=== PATIENT | male | born 1960 | race Caucasian/White ===

== ENCOUNTER 2024-09-24 20:27 | Observation (INO) ==
[2024-09-24] MEDS: LORazepam 1 MG TAB SL STA (20:49)
[2024-09-24] MEDS: dilTIAZem HCl 5 MG/ML 5 ML VIAL IV STA (20:49)
[2024-09-24] MEDS: SODIUM CHLORIDE 0.9% 1,000 ML IV SCH (20:50)
[2024-09-24] MEDS: LORazepam 0.5 MG TAB ONE (20:50)
[2024-09-24] MEDS: ASPIRIN 81 MG CHEW PO STA (20:50)
[2024-09-24] MEDS: ASPIRIN CHEW 324 MG ONE (20:50)
[2024-09-24 21:13] LABS: Basophils # (auto) 0.07 K/uL (0.00-0.20); Basophils % (auto) 1.1 %; Eosinophils # (auto) 0.21 K/uL (0.00-0.50); Eosinophils % (auto) 3.2 %; Hematocrit (blood only) 48.3 % (42.0-52.0); Hemoglobin 16.7 g/dl (14.0-18.0); Immature Granulocytes # (auto) 0.08 K/uL (0.01-0.20); Immature Granulocytes % (auto) 1.2 %; Lymphocytes # (auto) 2.85 K/uL (1.20-3.40); Lymphocytes % (auto) 42.9 %; Mean Corpuscular Hemoglobin 31.8 pg (25.0-34.0); Mean Corpuscular Hgb Conc 34.6 g/dL (32.0-36.0); Mean Platelet Volume 9.4 fL (9.4-12.4); Monocytes # (auto) 0.58 K/uL (0.11-0.59); Monocytes % (auto) 8.7 %; Neutrophils # (auto) 2.86 K/uL (1.40-6.50); Neutrophils % (auto) 42.9 %; Platelet Count 260 K/uL (130-400); RDW Coefficient of Variation 12.9 % (11.5-14.5); RDW Standard Deviation 43.8 fL (36.4-46.3); Red Blood Count 5.25 M/uL (4.70-6.10); White Blood Count 6.65 K/ul (4.8-10.8)
[2024-09-24 21:19] LABS: BUN Creatinine Ratio 18.8 (10-20); Calcium 9.4 mg/dl (8.6-10.3); Creatinine Clr Calc Pharmacy 76.6 ml/min; Magnesium 1.7 mg/dl (1.7-2.4); Potassium 4.1 mmol/L (3.5-5.1)
[2024-09-24] MEDS: OPTIRAY 320 125ml IV ONE (21:25)
[2024-09-24 21:26] LABS: Troponin I High Sensitivity 2.4 pg/ml (0-20)
[2024-09-24 21:31] LABS: Partial Thromboplastin Time 28 Seconds (21-31)
[2024-09-24] MEDS: POTASSIUM CHLORIDE CRTAB 20 MEQ TABCR PO STA (21:49)
[2024-09-24] MEDS: MAGNESIUM SULFATE / D5W 1 GM/100 ML BAG IV SCH (21:51)
[2024-09-24] MEDS: METOPROLOL TARTRATE 25 MG TAB PO STA ×2 (21:58→23:04)
--- NOTE | 2024-09-24 22:01 | CT Scan Report ---
Exam(s): CTA CHEST IV Amt: 119 ml optiray 320 EXAM: CT Angiography Chest With Intravenous Contrast CLINICAL HISTORY: Reason for exam: Chest Pain, eval for PE. TECHNIQUE: Axial computed tomographic angiography images of the chest with intravenous contrast. CTDI is 40 mGy and DLP is 1103.44 mGy-cm. Automated exposure control was utilized for the study. A dose lowering technique was utilized adhering to the principles of ALARA. MIP reconstructed images were created and reviewed. COMPARISON: X-ray chest: 07/21/2022 FINDINGS: Exam limited by motion and suboptimal IV contrast bolus/timing. Pulmonary arteries: Unremarkable. No pulmonary embolism. Aorta: No acute findings. No thoracic aortic aneurysm. Calcified atherosclerotic plaque of the aortic arch. Lungs: Central airways are patent. No mass. No consolidation. Pleural space: Unremarkable. No significant effusion. No pneumothorax. An elevated right hemidiaphragm. Heart: Unremarkable. No cardiomegaly. No significant pericardial effusion. No evidence of RV dysfunction. Bones/joints: No acute fracture. No dislocation. Mid/lower thoracic degenerative spondylosis. Soft tissues: Unremarkable. Lymph nodes: No significantly enlarged lymph nodes. Other findings: A small hiatal hernia. Diffuse hepatic steatosis. . IMPRESSION: No evidence of pulmonary embolism, aortic aneurysm or dissection. . Electronically signed by: Feliberto Albert MD, WANGR 09/24/24 22:00 PM
[2024-09-24 22:06] LABS: Appearance Urine Clear (Clear); Bilirubin Urine Negative (Negative); Blood Urine Negative (Negative); Color Urine Yellow; Glucose Urine UA Negative (Negative); Ketones Urine Negative (Negative); Leukocyte Esterase Urine Negative (Negative); Nitrite Urine Negative (Negative); Protein Urine Negative (Negative); Specific Gravity Urine 1.021 (1.000-1.030); Urobilinogen Urine Negative (Negative)
[2024-09-24 22:37] LABS: Amphetamines+Metham, Urine Neg (Neg); Barbiturates, Urine Neg (Neg); Benzodiazepine, Urine Neg (Neg); Cocaine, Urine Neg (Neg); Fentanyl, Urine Neg (Neg); MDMA (Ecstacy), Urine Neg (Neg); Marijuana, Urine Neg (Neg); Methadone, Urine Neg (Neg); Opiate, Urine Neg (Neg); Phencyclidine, Urine Neg (Neg)
--- NOTE | 2024-09-24 22:37 | Emergency Department Note ---
History of Present Illness General Chief Complaint: Cardiac Assessment Stated Complaint: LIGHTED , SOB, DIZZY, CHEST HEAVYNESS, AFIB Time Seen by Provider: 09/24/24 20:37 History of Present Illness Provider Complaint: + rapid heart beat and + palpitations Onset (ago): 2 day(s) Duration: + Worsening Maximum Pain Intensity: 8 Context: + occurred during rest Arrhythmia history: no atrial fibrillation or no on anti-coagulants Associated symptoms: + chest pain, + shortness of breath and + near-syncope; no syncope, no nausea, no vomiting or no cough HPI narrative: Patient reports his Apple Watch told him he was in A-fib so he presented to the emergency department. Patient reports he drinks 6-7 beers a day but did not drink any the last 2 days. Home Medications Medication Instructions Recorded Confirmed Type lisinopril 40 mg tablet 40 mg PO QAM 08/13/21 09/24/24 History simvastatin 40 mg tablet 40 mg PO HS 08/13/21 09/24/24 History pantoprazole 40 mg tablet,delayed 40 mg PO QAM 10/31/23 09/24/24 History release amoxicillin 500 mg tablet 2,000 mg (4 x 500 mg) PO ONCE #4 11/03/23 09/24/24 Rx tabs tadalafil 5 mg tablet 5 mg PO DAILY PRN Erectile 05/16/24 09/24/24 Rx Dysfunction 30 days #30 tabs trazodone 50 mg tablet 50 mg PO HS 90 days #90 tabs 07/01/24 09/24/24 Rx Allergies Allergy/AdvReac Type Severity Reaction Status Date / Time No Known Allergies Allergy Verified 05/07/24 13:34 Past Med/Surg History Problem List Atrial fibrillation with RVR (Acute) Colon cancer screening Encounter for pre-operative examination Obesity (BMI 30.0-34.9) Status post total knee replacement GERD (gastroesophageal reflux disease) Hyperlipidemia Hypertension Status post right knee replacement Right TKA (11/11/21): SAB at L3 (x1 attempt) + PNB at [facility]. No issues noted per post-op anesthesia progress note. Surgical History History of total knee replacement left/right History of colonoscopy Hx of hernia repair As child History of tonsillectomy Family History Father Diabetes Hypertension Other No family history of adverse response to anesthesia Denies family history of Ovarian cancer Prostate cancer Heart disease Myocardial infarction Breast cancer Colorectal cancer Social History Smoking Status: Former smoker Age Started Using Tobacco: 20; Age Quit Using Tobacco: 38; Second Hand Exposure: Yes (as a child); Do You Dip or Chew Tobacco: No; Hx Alcohol Use: Yes Alcohol type: beer Alcohol Intake Frequency: 4 or More x per/Week Preferred Language: Cymro Communication Ability: Effective Corporate Financial Analyst Required: No Beliefs That Will Affect Care: None marital status: Current Living Situation: Spouse current occupational status: retired Feels Safe at Home: Yes Childhood Exposure to Second-Hand Smoke: Yes (father smoked a pipe) Diet: regular Dental Care, Regularly: No Physical Activity Frequency: 3-4 Times per Week Physical Activity Frequency Comment: [employer] Seatbelt Use: always Sunscreen Use: Yes Assistive Devices: Glasses Physical Exam 2 Vital Signs: Vital Signs - 24 hr 09/24/24 20:29 09/24/24 20:38 09/24/24 20:38 Temperature 36 C L Temperature Source Temporal Artery Sc an Pulse Rate 120 H 135 H Pulse Rate [Apical ] Pulse Rhythm Irregular Respiratory Rate 20 22 Respiratory Effort / Characteristics Respiratory Depth Respiratory Patter n Blood Pressure 141/94 H Blood Pressure [Ri ght Arm] Blood Pressure Mary n 109 Blood Pressure Mary n [Right Arm] Pulse Oximetry 95 95 Oxygen Delivery Me thod Room Air Room Air Sepsis Recent Feve r Within 48 Hours No Sepsis New/Unexpla ined Change in Men jose Status No Sepsis Action Take n by Nursing No Action Required 09/24/24 20:52 09/24/24 21:58 Temperature Temperature Source Pulse Rate Pulse Rate [Apical ] 96 H Pulse Rhythm Respiratory Rate 20 Respiratory Effort / Characteristics Non-Labored Sponta neous Respiratory Depth Normal Respiratory Patter n Regular Blood Pressure Blood Pressure [Ri ght Arm] 148/128 H Blood Pressure Mary n Blood Pressure Mary n [Right Arm] 134 Pulse Oximetry 95 95 Oxygen Delivery Me thod Room Air Room Air Sepsis Recent Feve r Within 48 Hours Sepsis New/Unexpla ined Change in Men jose Status Sepsis Action Take n by Nursing Physical Exam: Physical Exam GENERAL: oriented to person, place, and time. appears well-developed and well- nourished. HENT: Exam performed. - Head: Normocephalic and atraumatic. EYES: Conjunctivae and EOM are normal. Right eye exhibits no discharge. Left eye exhibits no discharge. No scleral icterus. NECK: Normal range of motion. Neck supple. No JVD present. CV: Tachycardic rate, irregular rhythm, normal heart sounds and intact distal pulses. There is no peripheral edema. Palpable radial pulses bue. PULM/CHEST: Effort normal and breath sounds normal. No respiratory distress. No stridor. no wheezes. no rales. ABD: The abdomen is soft. There is no tenderness. NEURO: Motor and sensation grossly intact. SKIN: Skin is warm and dry. He is not diaphoretic. PSYCH: normal mood and affect. Behavior is normal. Judgment and thought content normal. Course Course 2036: The patient was evaluated in room A11A. A complete history and physical exam was performed Cardiac monitoring: An order was placed for continuous cardiac monitoring. The monitor shows a rate of 140-160 with atrial fibrilation rhythm interpreted by me Patient found to be in A-fib RVR. Large-bore IV access was obtained. Cardizem 20 mg IV push was given to the patient which improved his ventricular rate. 2214: Vital signs stable status post Cardizem bolus. Labs and imaging are unremarkable. Patient will be admitted to the [facility]. Administered Medications Sodium Chloride (Nss) 1,000 mls @ 125 mls/hr IV .Q8H [facility] Stop: 09/25/24 20:44 Last Admin: 09/24/24 20:50 Dose: 125 mls/hr Documented By: [facility] Magnesium Sulfate/Dextrose (Magnesium Sulfate / D5w) 1 gm in 100 mls @ 50 mls/hr IV Q2H [facility] Stop: 09/25/24 01:29 Last Admin: 09/24/24 21:51 Dose: 50 mls/hr Documented By: [facility] Discontinued Medications Aspirin (Aspirin 81 Mg Chew) 324 mg PO NOW [facility] Stop: 09/24/24 20:43 Last Admin: 09/24/24 20:50 Dose: Not Given Documented By: [facility] Aspirin (Aspirin Chew 324 Mg) Confirm Administered Dose 324 mg .ROUTE .STK-MED ONE Stop: 12/10/24 20:45 Last Admin: 09/24/24 20:50 Dose: 324 mg Documented By: ANDREY Diltiazem HCl (Diltiazem Hcl 5 Mg/Ml 5 Ml Vial) 20 mg IV NOW STA Stop: 09/24/24 20:42 Last Admin: 09/24/24 20:49 Dose: 20 mg Documented By: ANDREY Co-signed By: ALEN Ioversol (Optiray 320 125ml) 119 ml IV ONCE ONE Stop: 09/24/24 21:25 Last Admin: 09/24/24 21:25 Dose: 119 ml Documented By: SHANNAN Lorazepam (Lorazepam 1 Mg Tab) 1 mg SL NOW STA Stop: 09/24/24 20:43 Last Admin: 09/24/24 20:49 Dose: 1 mg Documented By: ANDREY Lorazepam (Lorazepam 0.5 Mg Tab) Confirm Administered Dose 0.5 mg .ROUTE .STK- MED ONE Stop: 09/24/24 20:46 Last Admin: 09/24/24 20:50 Dose: Not Given Documented By: ANDREY Metoprolol Tartrate (Metoprolol Tartrate 25 Mg Tab) 25 mg PO NOW STA Stop: 09/24/24 21:53 Last Admin: 09/24/24 21:58 Dose: 25 mg Documented By: ALEN Potassium Chloride (Potassium Chloride Crtab 20 Meq Tabcr) 20 meq PO NOW STA Stop: 09/24/24 21:28 Last Admin: 09/24/24 21:49 Dose: 20 meq Documented By: ALEN Medical Decision Making Laboratory Data Attestation: I reviewed the patient's lab results. 09/24/24 20:41 09/24/24 20:41 Lab Results 09/24/24 09/24/24 Range/Units 20:41 21:45 WBC 6.65 (4.8-10.8) K/ul RBC 5.25 (4.70-6.10) M/uL Hgb 16.7 (14.0-18.0) g/dl Hct 48.3 (42.0-52.0) % MCV 92.0 (80.0-100.0) fL MCH 31.8 (25.0-34.0) pg MCHC 34.6 (32.0-36.0) g/dL RDW Std Deviation 43.8 (36.4-46.3) fL RDW Coeff of [place] 12.9 (11.5-14.5) % Plt Count 260 (130-400) K/uL MPV 9.4 (9.4-12.4) fL Immature Gran % (Auto) 1.2 % Neut % (Auto) 42.9 % Lymph % (Auto) 42.9 % [place] % (Auto) 8.7 % Eos % (Auto) 3.2 % Baso % (Auto) 1.1 % Neut # (Auto) 2.86 (1.40-6.50) K/uL Lymph # (Auto) 2.85 (1.20-3.40) K/uL [place] # (Auto) 0.58 (0.11-0.59) K/uL Eos # (Auto) 0.21 (0.00-0.50) K/uL Baso # (Auto) 0.07 (0.00-0.20) K/uL Immature Gran # (Auto) 0.08 (0.01-0.20) K/uL PT 11.0 (9.0-12.0) Seconds INR 1.0 (0.9-1.1) APTT 28 (21-31) Seconds PTT Ratio 1.0 Sodium 136 (136-145) mmol/L Potassium 4.1 (3.5-5.1) mmol/L Chloride 104 (98-107) mmol/L Carbon Dioxide 24 (21-32) mmol/L Anion Gap 8 (3-11) BUN 24 H (6-23) mg/dl Creatinine 1.28 (0.6-1.4) mg/dl Est Cr Clr Drug Dosing 76.6 ml/min eGFR 61.73 BUN/Creatinine Ratio 18.8 (10-20) Glucose 123 H (70-99(Fasting)) mg/dl Calcium 9.4 (8.6-10.3) mg/dl Magnesium 1.7 (1.7-2.4) mg/dl Troponin I High Sens 2.4 (0-20) pg/ml Lipase 29 (11-82) U/L Urine Color Yellow Urine Appearance Clear (Clear) Urine pH 6.0 (4.5-7.5) Ur Specific [place] 1.021 (1.000-1.030) Urine Protein Negative (Negative) Urine Glucose (UA) Negative (Negative) Urine Ketones Negative (Negative) Urine Blood Negative (Negative) Urine Nitrite Negative (Negative) Urine Bilirubin Negative (Negative) Urine Urobilinogen Negative (Negative) Ur Leukocyte Esterase Negative (Negative) Imaging Data Attestation: I personally reviewed and interpreted this imaging study as follows: My Impression: Chest x-ray negative. Airway clear. No pneumothorax. No consolidation. No cardiomegaly or cephalization.. No free air under the diaphragm. No fractures of the skeletal structures. Radiologist's Impression: Chest CTA 09/24/24 20:38 Exam(s): CTA CHEST IV Amt: 119 ml optiray 320 EXAM: CT Angiography Chest With Intravenous Contrast CLINICAL HISTORY: Reason for exam: Chest Pain, eval for PE. TECHNIQUE: Axial computed tomographic angiography images of the chest with intravenous contrast. CTDI is 40 mGy and DLP is 1103.44 mGy-cm. Automated exposure control was utilized for the study. A dose lowering technique was utilized adhering to the principles of ALARA. MIP reconstructed images were created and reviewed. COMPARISON: X-ray chest: 07/21/2022 FINDINGS: Exam limited by motion and suboptimal IV contrast bolus/timing. Pulmonary arteries: Unremarkable. No pulmonary embolism. Aorta: No acute findings. No thoracic aortic aneurysm. Calcified atherosclerotic plaque of the aortic arch. Lungs: Central airways are patent. No mass. No consolidation. Pleural space: Unremarkable. No significant effusion. No pneumothorax. An elevated right hemidiaphragm. Heart: Unremarkable. No cardiomegaly. No significant pericardial effusion. No evidence of RV dysfunction. Bones/joints: No acute fracture. No dislocation. Mid/lower thoracic degenerative spondylosis. Soft tissues: Unremarkable. Lymph nodes: No significantly enlarged lymph nodes. Other findings: A small hiatal hernia. Diffuse hepatic steatosis. . IMPRESSION: No evidence of pulmonary embolism, aortic aneurysm or dissection. . Electronically signed by: Feliberto Albert MD, DABR 09/24/24 22:00 PM ECG Data Attestation: I personally reviewed and interpreted this ECG as follows: Additional Comments: EKG #1 at 2034: Atrial fibrillation with a rate of 139. QRS and QTc intervals within normal limits. No ST elevation or ST depression EKG #2 at 2045 status post Cardizem 20 mg IV bolus: Atrial fibrillation with a rate of 103. QRS and QTc intervals are within normal limits. No ST elevation or ST depression. [facility] Narrative 2036: The patient was evaluated in room A11A. A complete history and physical exam was performed Cardiac monitoring: An order was placed for continuous cardiac monitoring. The monitor shows a rate of 140-160 with atrial fibrilation rhythm interpreted by me Patient found to be in A-fib RVR. Large-bore IV access was obtained. Cardizem 20 mg IV push was given to the patient which improved his ventricular rate. 2215: Vital signs stable status post Cardizem bolus. Labs and imaging are unremarkable. Patient will be admitted to the [facility]. Impression & Plan Atrial fibrillation with RVR Critical Care Time Critical Care Time: Yes Total Critical Care Time: 40 I have personally spent greater than 40 minutes of critical care time in the direct management of this patient. This includes bedside care, interpretation of diagnostic studies, and testing, discussion with consultants, patient, and family members, and other required patient management activities. This 40 minutes is in excess of all separately billable procedures. Discharge Plan Visit Data Chief Complaint: Cardiac Assessment Stated Complaint: LIGHTED , SOB, DIZZY, CHEST HEAVYNESS, AFIB ED Provider: Marshall Mittal Discharge Problem: Atrial fibrillation with RVR Patient Disposition: Admitted As Inpatient Forms Stand Alone Forms: My [facility] Prescriptions Prescriptions: No Action amoxicillin 500 mg tablet 2,000 mg PO ONCE Qty: 4 3RF Rx Instructions: 4 tabs 1 hour prior to procedure tadalafil 5 mg tablet 5 mg PO DAILY PRN (Reason: Erectile Dysfunction) 30 Days Qty: 30 5RF trazodone 50 mg tablet 50 mg PO HS 90 Days Qty: 90 0RF pantoprazole 40 mg tablet,delayed release (DR/EC) 40 mg PO QAM simvastatin 40 mg Tablet 40 mg PO HS lisinopril 40 mg Tablet 40 mg PO QAM Referrals Referrals: Caroline Thakkar MD [Primary Care Provider] -
[2024-09-24] MEDS ORDERED: Heparin IV Adult Wt-Based Standard *NO* INITIAL Bolus Protocol IV STA (23:26)
--- NOTE | 2024-09-24 23:31 | History & Physical Report ---
Date of Service September 24, 2024 Assessment & Plan (1) Atrial fibrillation with RVR: (2) Hypertension: (3) Hypomagnesemia: (4) Dehydration: (5) Alcohol dependence, daily use: Admission and Anticipated Discharge Date Admission Date: New onset atrial fibrillation with RVR/hypertension- The patient will be admitted to telemetry for serial cardiac enzymes, serial EKG's, cardiac rhythm monitoring and a 2-D echocardiogram with Dopplers. Multiple contributing factors including not limited to: Dehydration, hypomagnesemia, alcohol dependence with last use 2 days ago, Status post Cardizem 20 mg IV from the ED, with improvement in heart rate from 150s down to 100s Give metoprolol tartrate 25 mg p.o. now, 10 PM, give second dose at 11 PM, then 25 mg p.o. every 6 hours Hold lisinopril to allow for increased blood pressure with the addition of negative inotropic action with metoprolol to tartrate Lopressor 5 mg IV every 4 hours as needed for sustained heart rate greater than 110 Start heparin drip standard dosing IV no bolus per protocol Serial CBC with differential, chemistry profile, magnesium, PT/INR/PTT and troponin Hypomagnesemia/dehydration- Magnesium 1.7 Creatinine 1.28 Hold lisinopril Give Klor-Con 20 mEq p.o. NSS at 125 mL/h x 1 L Magnesium sulfate 2 g IV Recheck laboratories in a.m. Daily alcohol use- Patient reports drinking 7 beers on average daily, but no intake in the past 2 days Placed on AWSS protocol with oral Ativan Thiamine 100 mg p.o. every morning Folate 1 mg p.o. every morning History of Present Illness Chief Complaint: The patient presents to the emergency department with acute onset of chest heaviness, dizziness, lightheadedness and shortness of breath. Upon initial assessment in the emergency department, patient found to be in new onset atrial fibrillation with RVR in 150s on the monitor Primary Care Provider: Caroline Thakkar MD The patient is a 64-year-old male with a past medical history including obesity, GERD, hyperlipidemia, hypertension, ED, insomnia, and daily alcohol use. He presents to the emergency department with symptoms as noted above. Upon arrival to the ED he was found to be in atrial fibrillation with RVR in the 150s, that responded to Cardizem 20 mg IV from the ED to heart rate in the low 100s. Allergies Allergy/AdvReac Type Severity Reaction Status Date / Time No Known Allergies Allergy Verified 05/07/24 13:34 Home Medications Medication Instructions Recorded Confirmed Type lisinopril 40 mg tablet 40 mg PO QAM 08/13/21 09/24/24 History simvastatin 40 mg tablet 40 mg PO HS 08/13/21 09/24/24 History pantoprazole 40 mg tablet,delayed 40 mg PO QAM 10/31/23 09/24/24 History release amoxicillin 500 mg tablet 2,000 mg (4 x 500 mg) PO ONCE #4 11/03/23 09/24/24 Rx tabs tadalafil 5 mg tablet 5 mg PO DAILY PRN Erectile 05/16/24 09/24/24 Rx Dysfunction 30 days #30 tabs trazodone 50 mg tablet 50 mg PO HS 90 days #90 tabs 07/01/24 09/24/24 Rx Past Med/Surg History Problem List Alcohol dependence, daily use Dehydration Hypomagnesemia Atrial fibrillation with RVR (Acute) Colon cancer screening Encounter for pre-operative examination Obesity (BMI 30.0-34.9) Status post total knee replacement GERD (gastroesophageal reflux disease) Hyperlipidemia Hypertension Status post right knee replacement Right TKA (11/11/21): SAB at L3 (x1 attempt) + PNB at [facility]. No issues noted per post-op anesthesia progress note. Surgical History History of total knee replacement left/right History of colonoscopy Hx of hernia repair As child History of tonsillectomy Family History Father Diabetes Hypertension Other No family history of adverse response to anesthesia Denies family history of Ovarian cancer Prostate cancer Heart disease Myocardial infarction Breast cancer Colorectal cancer Social History Smoking Status: Never smoker Age Started Using Tobacco: 20; Age Quit Using Tobacco: 38; Second Hand Exposure: Yes (as a child); Do You Dip or Chew Tobacco: No; Hx Alcohol Use: Yes Alcohol type: beer Alcohol Intake Frequency: 4 or More x per/Week Hx Substance Use: No Preferred Language: Japanese Communication Ability: Effective Egyptologist Required: No Beliefs That Will Affect Care: None marital status: Current Living Situation: Spouse current occupational status: retired Feels Safe at Home: Yes Safety Concerns: Feels Safe At This Time Childhood Exposure to Second-Hand Smoke: Yes (father smoked a pipe) Diet: regular Dental Care, Regularly: No Physical Activity Frequency: 3-4 Times per Week Physical Activity Frequency Comment: [employer] Seatbelt Use: always Sunscreen Use: Yes Assistive Devices: Glasses Review of Systems Review of Systems: The patient denies palpitations, cough, lower extremity swelling, sore throat, fevers, chills, sweats, nausea, vomiting, diarrhea , constipation, abdominal pain, pelvic pain, blood in urine or stool, dysuria, urinary frequency or urgency, memory loss, loss of consciousness, rash, abnormal bruising or bleeding, imbalance, focal or generalized weakness, numbness or tingling in arms or legs, generalized arthralgias or myalgias, back or neck pain, or night sweats. The review of systems is otherwise negative other than for that already noted above, and at least 10 systems have been reviewed. Physical Exam Physical Exam: The patient is awake, alert and oriented 3, well developed and well nourished, normocephalic and atraumatic, lying in bed and in no acute distress. HEENT--PERRL, EOMI, mucous membranes and oropharynx dry. Neck--supple. No JVD. No bruits. Thyroid normal, trachea midline, no adenopathy. Heart--irregularly irregular. No murmurs, rubs or gallops. Lungs--clear bilaterally, no respiratory distress, no accessory muscle use. Abdomen--normal bowel sounds and soft. Nontender. Nondistended, no hernias or masses, no organomegaly. Extremities--no cyanosis or clubbing. No edema. There are good distal pulses b/l. Dermatologic--normal skin turgor, normal color, no abnormal lymph nodes, no rash. Neurologic--cranial nerves II through XII grossly intact. Rheumatologic--normal range of motion. Psychiatric--normal affect. Results & Data Results & Data Vital Signs (Past 12 Hours) Vital Signs Temp Pulse Pulse Resp BP BP Pulse Ox 09/24/24 23:00 97 H 18 117/85 95 09/24/24 21:58 96 H 20 148/128 H 95 09/24/24 20:52 95 09/24/24 20:38 22 95 09/24/24 20:38 135 H 09/24/24 20:29 36 C L 120 H 20 141/94 H 95 O2 Del Method 09/24/24 23:00 Room Air 09/24/24 21:58 Room Air 09/24/24 20:52 Room Air 09/24/24 20:38 Room Air 09/24/24 20:38 09/24/24 20:29 Room Air Laboratory Results Laboratory Results WBC 6.65 K/ul (4.8-10.8) 09/24/24 20:41 RBC 5.25 M/uL (4.70-6.10) 09/24/24 20:41 Hgb 16.7 g/dl (14.0-18.0) 09/24/24 20:41 Hct 48.3 % (42.0-52.0) 09/24/24 20:41 MCV 92.0 fL (80.0-100.0) 09/24/24 20:41 MCH 31.8 pg (25.0-34.0) 09/24/24 20:41 MCHC 34.6 g/dL (32.0-36.0) 09/24/24 20:41 RDW Std Deviation 43.8 fL (36.4-46.3) 09/24/24 20:41 RDW Coeff of Maribell 12.9 % (11.5-14.5) 09/24/24 20:41 Plt Count 260 K/uL (130-400) 09/24/24 20:41 MPV 9.4 fL (9.4-12.4) 09/24/24 20:41 Immature Gran % (Auto) 1.2 % 09/24/24 20:41 Neut % (Auto) 42.9 % 09/24/24 20:41 Lymph % (Auto) 42.9 % 09/24/24 20:41 Cannon % (Auto) 8.7 % 09/24/24 20:41 Eos % (Auto) 3.2 % 09/24/24 20:41 Baso % (Auto) 1.1 % 09/24/24 20:41 Neut # (Auto) 2.86 K/uL (1.40-6.50) 09/24/24 20:41 Lymph # (Auto) 2.85 K/uL (1.20-3.40) 09/24/24 20:41 Cannon # (Auto) 0.58 K/uL (0.11-0.59) 09/24/24 20:41 Eos # (Auto) 0.21 K/uL (0.00-0.50) 09/24/24 20:41 Baso # (Auto) 0.07 K/uL (0.00-0.20) 09/24/24 20:41 Immature Gran # (Auto) 0.08 K/uL (0.01-0.20) 09/24/24 20:41 PT 11.0 Seconds (9.0-12.0) 09/24/24 20:41 INR 1.0 (0.9-1.1) 09/24/24 20:41 APTT 28 Seconds (21-31) 09/24/24 20:41 PTT Ratio 1.0 09/24/24 20:41 Sodium 136 mmol/L (136-145) 09/24/24 20:41 Potassium 4.1 mmol/L (3.5-5.1) 09/24/24 20:41 Chloride 104 mmol/L (98-107) 09/24/24 20:41 Carbon Dioxide 24 mmol/L (21-32) 09/24/24 20:41 Anion Gap 8 (3-11) 09/24/24 20:41 BUN 24 mg/dl (6-23) H 09/24/24 20:41 Creatinine 1.28 mg/dl (0.6-1.4) 09/24/24 20:41 Est Cr Clr Drug Dosing 76.6 ml/min 09/24/24 20:41 eGFR 61.73 09/24/24 20:41 BUN/Creatinine Ratio 18.8 (10-20) 09/24/24 20:41 Glucose 123 mg/dl (70-99(Fasting)) H 09/24/24 20:41 Calcium 9.4 mg/dl (8.6-10.3) 09/24/24 20:41 Magnesium 1.7 mg/dl (1.7-2.4) 09/24/24 20:41 Troponin I High Sens 2.4 pg/ml (0-20) 09/24/24 20:41 Lipase 29 U/L (11-82) 09/24/24 20:41 Urine Color Yellow 09/24/24 21:45 Urine Appearance Clear (Clear) 09/24/24 21:45 Urine pH 6.0 (4.5-7.5) 09/24/24 21:45 Ur Specific [place] 1.021 (1.000-1.030) 09/24/24 21:45 Urine Protein Negative (Negative) 09/24/24 21:45 Urine Glucose (UA) Negative (Negative) 09/24/24 21:45 Urine Ketones Negative (Negative) 09/24/24 21:45 Urine Blood Negative (Negative) 09/24/24 21:45 Urine Nitrite Negative (Negative) 09/24/24 21:45 Urine Bilirubin Negative (Negative) 09/24/24 21:45 Urine Urobilinogen Negative (Negative) 09/24/24 21:45 Ur Leukocyte Esterase Negative (Negative) 09/24/24 21:45 Urine Opiates Screen Neg (Neg) 09/24/24 21:45 Ur Methadone, Qual Neg (Neg) 09/24/24 21:45 Urine Fentanyl Screen Neg (Neg) 09/24/24 21:45 Urine Barbiturates Neg (Neg) 09/24/24 21:45 Ur Phencyclidine (PCP) Neg (Neg) 09/24/24 21:45 U Amphetamin/Meth Scrn Neg (Neg) 09/24/24 21:45 MDMA (Ecstasy) Screen Neg (Neg) 09/24/24 21:45 U Benzodiazepines Scrn Neg (Neg) 09/24/24 21:45 Ur Cocaine Metabolite Neg (Neg) 09/24/24 21:45 U Marijuana (THC) Screen Neg (Neg) 09/24/24 21:45 Ethyl Alcohol mg/dL < 10.0 mg/dl (<10.0) 09/24/24 22:48 Impressions Chest CTA 09/24/24 20:38 Exam(s): CTA CHEST IV Amt: 119 ml optiray 320 EXAM: CT Angiography Chest With Intravenous Contrast CLINICAL HISTORY: Reason for exam: Chest Pain, eval for PE. TECHNIQUE: Axial computed tomographic angiography images of the chest with intravenous contrast. CTDI is 40 mGy and DLP is 1103.44 mGy-cm. Automated exposure control was utilized for the study. A dose lowering technique was utilized adhering to the principles of ALARA. MIP reconstructed images were created and reviewed. COMPARISON: X-ray chest: 07/21/2022 FINDINGS: Exam limited by motion and suboptimal IV contrast bolus/timing. Pulmonary arteries: Unremarkable. No pulmonary embolism. Aorta: No acute findings. No thoracic aortic aneurysm. Calcified atherosclerotic plaque of the aortic arch. Lungs: Central airways are patent. No mass. No consolidation. Pleural space: Unremarkable. No significant effusion. No pneumothorax. An elevated right hemidiaphragm. Heart: Unremarkable. No cardiomegaly. No significant pericardial effusion. No evidence of RV dysfunction. Bones/joints: No acute fracture. No dislocation. Mid/lower thoracic degenerative spondylosis. Soft tissues: Unremarkable. Lymph nodes: No significantly enlarged lymph nodes. Other findings: A small hiatal hernia. Diffuse hepatic steatosis. . IMPRESSION: No evidence of pulmonary embolism, aortic aneurysm or dissection. . Electronically signed by: Feliberto Albert MD, TRINIDAD 09/24/24 22:00 PM Chest X-Ray 09/24/24 20:38 Exam(s): XR CXR 1 VIEW EXAM: XR Chest, 1 View CLINICAL HISTORY: Reason for exam: Chest pain, nonspecific. TECHNIQUE: Frontal view of the chest. COMPARISON: None. FINDINGS: Lungs: Somewhat underexpanded lungs. Mildly prominent perihilar bronchovascular/interstitial markings. No consolidation. Pleural space: No pleural effusion. No pneumothorax. Elevated right hemidiaphragm. Heart: No cardiomegaly. Mediastinum: Unremarkable. Normal mediastinal contour. Bones/joints: Unremarkable. No acute fracture.. IMPRESSION: Bilateral perihilar mildly prominent peripheral vascular/interstitial markings. No consolidation. No pleural effusion. An elevated right hemidiaphragm. . Electronically signed by: Feliberto Albert MD, TRINIDAD 09/25/24 01:49 AM Code Status & VTE Plan Code Status Full code VTE Prophylaxis Plan VTE Prophylaxis will be ordered: Yes PG Care Time/CCT Total # of Minutes Spent Total Time Spent with Patient: Total time spent is greater than 50% in coordination of care (as documented) at patient's floor/unit and/or counseling patient: Coding Level of Care Code 89365 INT INP/OBS CARE 3/75MIN Diagnoses Atrial fibrillation with RVR I48.91 Hypertension I10 Hypomagnesemia E83.42 Dehydration E86.0 Alcohol dependence, daily use F10.20
[2024-09-24] MEDS: SIMVASTATIN 40 MG TAB PO STA (23:55)
[2024-09-24] MEDS: traZODone HCL 50 MG TAB PO STA (23:55)
[2024-09-25] MEDS: HEPARIN SODIUM/DEXTROSE 25,000 UNITS/500 ML BAG IV SCH (00:32)
[2024-09-25] MEDS ORDERED: ACETAMINOPHEN 325 MG TAB PO PRN (00:57)
[2024-09-25] MEDS ORDERED: METOPROLOL TARTRATE 1 MG/ML VIAL IV PRN (01:00)
--- NOTE | 2024-09-25 01:50 | XRay Report ---
Exam(s): XR CXR 1 VIEW EXAM: XR Chest, 1 View CLINICAL HISTORY: Reason for exam: Chest pain, nonspecific. TECHNIQUE: Frontal view of the chest. COMPARISON: None. FINDINGS: Lungs: Somewhat underexpanded lungs. Mildly prominent perihilar bronchovascular/interstitial markings. No consolidation. Pleural space: No pleural effusion. No pneumothorax. Elevated right hemidiaphragm. Heart: No cardiomegaly. Mediastinum: Unremarkable. Normal mediastinal contour. Bones/joints: Unremarkable. No acute fracture.. IMPRESSION: Bilateral perihilar mildly prominent peripheral vascular/interstitial markings. No consolidation. No pleural effusion. An elevated right hemidiaphragm. . Electronically signed by: Feliberto Albert MD, DABR 09/25/24 01:49 AM
[2024-09-25] MEDS ORDERED: Ativan PO Alcohol Withdrawal--Active Protocol PO PRN (03:22)
[2024-09-25] MEDS ORDERED: LORazepam 1 MG TAB PO PRN ×3 (03:22)
[2024-09-25] MEDS: METOPROLOL TARTRATE 25 MG TAB PO SCH (05:28)
[2024-09-25 07:53] LABS: Basophils # (auto) 0.06 K/uL (0.00-0.20); Basophils % (auto) 1.1 %; Eosinophils # (auto) 0.16 K/uL (0.00-0.50); Hematocrit (blood only) 44.9 % (42.0-52.0); Hemoglobin 15.2 g/dl (14.0-18.0); Immature Granulocytes # (auto) 0.03 K/uL (0.01-0.20); Immature Granulocytes % (auto) 0.6 %; Lymphocytes # (auto) 2.41 K/uL (1.20-3.40); Lymphocytes % (auto) 45.2 %; Mean Corpuscular Hemoglobin 31.1 pg (25.0-34.0); Mean Corpuscular Hgb Conc 33.9 g/dL (32.0-36.0); Mean Corpuscular Volume 91.8 fL (80.0-100.0); Mean Platelet Volume 9.5 fL (9.4-12.4); Monocytes # (auto) 0.52 K/uL (0.11-0.59); Monocytes % (auto) 9.8 %; Neutrophils # (auto) 2.15 K/uL (1.40-6.50); Neutrophils % (auto) 40.3 %; Platelet Count 219 K/uL (130-400); RDW Coefficient of Variation 13.2 % (11.5-14.5); RDW Standard Deviation 44.5 fL (36.4-46.3); Red Blood Count 4.89 M/uL (4.70-6.10); White Blood Count 5.33 K/ul (4.8-10.8)
[2024-09-25 08:01] LABS: Albumin Globulin Ratio 1.6 (0.9-2); BUN Creatinine Ratio 22.2 (10-20); Bilirubin,Total 0.5 mg/dl (0.2-1.0); Calcium 8.8 mg/dl (8.6-10.3); Creatinine Clr Calc Pharmacy 97.1 ml/min; Globulin 2.5 gm/dl (2.5-4.0); Magnesium 2.2 mg/dl (1.7-2.4); Potassium 4.4 mmol/L (3.5-5.1); Total Protein 6.5 gm/dl (6.0-8.3)
[2024-09-25 08:08] LABS: Troponin I High Sensitivity 3.3 pg/ml (0-20)
[2024-09-25 08:15] LABS: ANTI-Xa, UFH(UnfractionatedHep 0.39 IU/ml (0.3-0.7)
[2024-09-25 08:19] LABS: Partial Thromboplastin Ratio 1.7; Partial Thromboplastin Time 47 Seconds (21-31); Prothrombin Time 11.1 Seconds (9.0-12.0)
--- NOTE | 2024-09-25 08:26 | Electrocardiogram Report ---
Test Reason : Blood Pressure : */* mmHG Vent. Rate : 139 BPM Atrial Rate : * BPM P-R Int : * ms QRS Dur : 90 ms QT Int : 292 ms P-R-T Axes : * 56 33 degrees QTcB Int : 444 ms Atrial fibrillation with rapid ventricular response Abnormal ECG When compared with ECG of 21-Jul-2022 12:33, Atrial fibrillation has replaced Sinus rhythm Vent. rate has increased by 70 bpm Confirmed by Adria Luna ([id number]) on 09/25/2024 8:25:59 AM Referred By: REFERRED SELF Confirmed By: Adria Luna
--- NOTE | 2024-09-25 08:27 | Electrocardiogram Report ---
Test Reason : Blood Pressure : */* mmHG Vent. Rate : 103 BPM Atrial Rate : * BPM P-R Int : * ms QRS Dur : 94 ms QT Int : 322 ms P-R-T Axes : * 57 50 degrees QTcB Int : 421 ms Atrial fibrillation with rapid ventricular response Abnormal ECG When compared with ECG of 24-Sep-2024 20:35, (unconfirmed) HR has decreased by 36 bpm Confirmed by Adria Luna ([id number]) on 09/25/2024 8:27:17 AM Referred By: REFERRED SELF Confirmed By: Adria Luna
--- NOTE | 2024-09-25 08:34 | Electrocardiogram Report ---
Test Reason : Blood Pressure : */* mmHG Vent. Rate : 95 BPM Atrial Rate : 111 BPM P-R Int : * ms QRS Dur : 90 ms QT Int : 364 ms P-R-T Axes : * 45 41 degrees QTcB Int : 457 ms Atrial fibrillation Abnormal ECG When compared with ECG of 25-Sep-2024 01:38, No significant change was found Confirmed by Adria Luna ([id number]) on 09/25/2024 8:33:56 AM Referred By: REFERRED SELF Confirmed By: Adria Luna
--- NOTE | 2024-09-25 09:01 | XCELERA ---
[id number]
[2024-09-25] MEDS: PANTOprazole 40 MG TAB PO SCH (09:23)
[2024-09-25] MEDS: FOLIC ACID 1 MG TAB PO SCH (09:23)
[2024-09-25] MEDS: THIAMINE HCL 100 MG TAB PO SCH (09:23)
--- NOTE | 2024-09-25 10:26 | Electrocardiogram Report ---
Test Reason : Blood Pressure : */* mmHG Vent. Rate : 106 BPM Atrial Rate : 125 BPM P-R Int : * ms QRS Dur : 100 ms QT Int : 352 ms P-R-T Axes : * 42 38 degrees QTcB Int : 467 ms Atrial fibrillation with rapid ventricular response Abnormal ECG When compared with ECG of 24-Sep-2024 20:46, No significant change was found Confirmed by Adria Luna ([id number]) on 09/25/2024 10:26:40 AM Referred By: REFERRED SELF Confirmed By: Adria Luna
[2024-09-25 11:06] LABS: iSTAT Creatinine 1.4 mg/dl (0.6-1.3); iSTAT Ionized Calcium 1.19 mmol/l (1.12-1.32); iSTAT Potassium 4.1 mmol/L (3.3-5.0)
--- NOTE | 2024-09-25 12:01 | Hospitalist Progress Note ---
Date of Service September 25, 2024 Assessment & Plan (1) Atrial fibrillation with RVR: Plan: Rate controlled with metoprolol. He is now on a heparin drip which eventually will be switched to Eliquis. Cardiology consultation pending. No chest pain. No evidence of acute coronary syndrome (2) Hypertension: Plan: Controlled. Metoprolol replaces lisinopril (3) Hypomagnesemia: Plan: Replacement ordered. Serial labs until corrected (4) Alcohol dependence, daily use: Plan: No history of DTs. BRAD S protocol if needed Plan Hopeful discharge to home tomorrow, September 26 Admission and Anticipated Discharge Date Admission Date: September 25, 2024 Subjective Alert and oriented. No complaints. is at the bedside. He remains in atrial fibrillation but his heart rate is controlled with metoprolol. Cardiac echo report and cardiology consultation pending. Review of Systems 2 Review of Systems: Constitutionalno fever or chills ENTno blurred vision, no double vision, no epistaxis, no sore throat Respiratoryno cough, no wheezing, no shortness of breath Cardiac no chest pain, no syncope. Palpitations have resolved Joon nausea, vomiting, diarrhea, melena, hematochezia GUno urinary retention, no urinary incontinence, no dysuria, no hematuria Musculoskeletalno joint pain, no muscle tenderness Skinno bruising, no rashes, no pruritus Neurono isolated weakness, no paresthesia, no weakness Psychno depression, no anxiety Physical Exam 2 Physical Exam: General-alert and oriented x3, no fever, no chills HEENT-head atraumatic and normocephalic, pupils equal and reactive to light, extraocular muscles intact Neck-no lymphadenopathy or thyromegaly, trachea midline Chest-clear to auscultation. No rales, wheezing or rhonchi Cardiac-irregular rhythm. Controlled rate. Normal S1 and S2 Abdomen-normal bowel sounds, no hepatosplenomegaly Extremities-no cyanosis, clubbing, or edema Neuro-cranial nerves II through XII intact, motor and sensory function within normal limits, strength symmetrical, no focal deficits Psych-normal affect, normal mood Results & Data Results & Data Vital Signs (Past 12 Hours) Vital Signs Temp Pulse Pulse Resp BP BP Pulse Ox 09/25/24 11:44 36.5 C 82 18 147/92 H 96 09/25/24 07:45 36.4 C L 70 18 124/86 97 09/25/24 06:10 84 09/25/24 05:35 136/88 09/25/24 03:57 36.5 C 89 16 109/74 93 09/25/24 00:59 36.8 C 95 H 21 135/88 95 09/25/24 00:45 98 H 09/25/24 00:11 106 H 20 122/87 94 O2 Del Method 09/25/24 11:44 Room Air 09/25/24 07:45 Room Air 09/25/24 06:10 09/25/24 05:35 09/25/24 03:57 Room Air 09/25/24 00:59 Room Air 09/25/24 00:45 09/25/24 00:11 Room Air Laboratory Results 09/25/24 07:07 09/25/24 07:07 PG Care Time/CCT Total # of Minutes Spent Total Time Spent with Patient: Total time spent is greater than 50% in coordination of care (as documented) at patient's floor/unit and/or counseling patient: Coding Level of Care Code 58327 SUB INP/OBS CARE 3/50MIN Diagnoses Atrial fibrillation with RVR I48.91 Hypertension I10 Hypomagnesemia E83.42 Alcohol dependence, daily use F10.20
--- NOTE | 2024-09-25 12:47 | Cardiology Consultation ---
Date of Consultation September 25, 2024 Assessment & Plan (1) Atrial fibrillation with RVR: (2) Hypomagnesemia: (3) Alcohol dependence, daily use: (4) Hypertension: Plan 64-year-old man with no cardiac history admitted yesterday with new onset atrial fibrillation and chest discomfort. Discussed with patient and his family at length the pathophysiology and management of atrial fibrillation. Risk factors for atrial fibrillation include immoderate alcohol use resulting in mild hypomagnesemia. Counseled patient regarding need for alcohol intake moderation or abstinence. Recommend change from IV medications to oral preparations for rate control, could discontinue IV diltiazem after initiating extended release diltiazem 120 mg currently, would continue metoprolol tartrate 25 mg every 6 hours with further adjustments based upon heart rate response followed by consolidation to metoprolol succinate tomorrow morning. Would anticoagulate with apixaban 5 mg twice daily, could discontinue heparin after first dose. At some point would change from simvastatin 40 mg daily to atorvastatin 40 mg daily to reduce risk of drug interactions given his increasingly complex medical regimen. Agree with repletion of magnesium, consider oral magnesium supplement (particularly if he continues with alcohol intake) Agree with discontinuation of lisinopril given introduction of alternative vasoactive medications. Given uncertainty as to duration of his atrial fibrillation there are no plans for early electrical cardioversion in the absence of decompensation, rather would anticoagulate for 3 to 4 weeks and perform elective electrical cardioversion if necessary at that time. Will continue to follow from a cardiology standpoint. History of Present Illness Reason for Consultation: new atrial fib with RVR Requesting Physician: Delmer Clay MD Attending Physician: Delmer Clay MD History of Present Illness 64-year-old man with no prior cardiac history admitted 09/24/2024 with chest discomfort, palpitations, and found to have new onset atrial fibrillation with rapid ventricular spots. Patient notes episodic tachypalpitations for some time, these became markedly worse for a few days prior to admission and he also noted a low level of anterior chest discomfort and significantly decreased exercise tolerance. No orthopnea, PND, or leg edema. No lightheadedness, presyncope, or syncope. Drinks 6 or 7 beers daily. Initial ECG showed atrial fibrillation with ventricular rate 139 bpm, otherwise unremarkable. ECG this morning showed atrial fibrillation with ventricular rate 95 bpm. Echocardiogram showed EF 50 to 55% with moderate LVH, mild AI, moderate MR, mild TR. Troponin negative yesterday and today. At the time of my evaluation this morning, he still noted mild chest discomfort which had a reproducible element, no other complaints. His subjective palpi tations had resolved. No dyspnea or lightheadedness. Telemetry showed atrial fibrillation with rates of up to 130 bpm yesterday, down to 80 bpm today. Allergies Allergy/AdvReac Type Severity Reaction Status Date / Time No Known Allergies Allergy Verified 05/07/24 13:34 Home Medications Medication Instructions Recorded Confirmed Type lisinopril 40 mg tablet 40 mg PO QAM 08/13/21 09/24/24 History simvastatin 40 mg tablet 40 mg PO HS 08/13/21 09/24/24 History pantoprazole 40 mg tablet,delayed 40 mg PO QAM 10/31/23 09/24/24 History release amoxicillin 500 mg tablet 2,000 mg (4 x 500 mg) PO ONCE #4 11/03/23 09/24/24 Rx tabs tadalafil 5 mg tablet 5 mg PO DAILY PRN Erectile 05/16/24 09/24/24 Rx Dysfunction 30 days #30 tabs trazodone 50 mg tablet 50 mg PO HS 90 days #90 tabs 07/01/24 09/24/24 Rx Patient History Surgical History (Updated 09/25/24 @ 12:43 by Adria Luna MD) Status post right knee replacement Right TKA (11/11/21): SAB at L3 (x1 attempt) + PNB at [facility]. No issues noted per post-op anesthesia progress note. History of total knee replacement left/right History of colonoscopy Hx of hernia repair As child History of tonsillectomy Family History Father Diabetes Hypertension Other No family history of adverse response to anesthesia Denies family history of Ovarian cancer Prostate cancer Heart disease Myocardial infarction Breast cancer Colorectal cancer Social History Smoking Status: Never smoker Age Started Using Tobacco: 20; Age Quit Using Tobacco: 38; Second Hand Exposure: Yes (as a child); Do You Dip or Chew Tobacco: No; Hx Alcohol Use: Yes Alcohol type: beer Alcohol Intake Frequency: 4 or More x per/Week Hx Substance Use: No Preferred Language: Swedish Communication Ability: Effective Orthopedic Specialist Required: No Beliefs That Will Affect Care: None marital status: Current Living Situation: Spouse current occupational status: retired Feels Safe at Home: Yes Safety Concerns: Feels Safe At This Time Childhood Exposure to Second-Hand Smoke: Yes (father smoked a pipe) Diet: regular Dental Care, Regularly: No Physical Activity Frequency: 3-4 Times per Week Physical Activity Frequency Comment: [employer] Seatbelt Use: always Sunscreen Use: Yes Assistive Devices: Glasses Physical Exam Physical Exam: Adult white male in no distress. Afebrile. BP mildly hypertensive. Pulse 80 and irregular. Respirations 18 unlabored. Skin: no ecchymoses or generalized lesions. HEENT: unremarkable. Neck: JVP at the clavicle at 90 degrees, no carotid bruits. Lungs: clear. No wheezing. Cardiac: Irregular rhythm, normal S1-2, 2/6 apical holosystolic murmur which is nonradiating, no diastolic murmur. Abdomen: benign. Extremities: Trace pretibial edema, pulses intact. Neurologic: normal affect and conversation, nonfocal. Results & Data Vital Signs (Past 12 Hours) Vital Signs Temp Pulse Pulse Resp BP Pulse Ox O2 Del Method 09/25/24 11:44 97.7 F 82 18 147/92 H 96 Room Air 09/25/24 07:45 97.5 F L 70 18 124/86 97 Room Air 09/25/24 06:10 84 09/25/24 05:35 136/88 09/25/24 03:57 97.7 F 89 16 109/74 93 Room Air 09/25/24 00:59 98.2 F 95 H 21 135/88 95 Room Air 09/25/24 00:45 98 H Laboratory Results Normal CBC. BUN 22, creatinine 0.99. Potassium 4.1 on admission 4.4 today. Magnesium 1.7 on admission, 2.2 today. Diagnostic Findings Chest x-ray showed mildly increased interstitial markings and elevated right hemidiaphragm, otherwise unremarkable. PG Care Time/CCT Total # of Minutes Spent Total Time Spent with Patient: Total time spent is greater than 50% in coordination of care (as documented) at patient's floor/unit and/or counseling patient: Coding Level of Care Code 76615 IN/OBS CONSULT LVL 5,80M Diagnoses Atrial fibrillation with RVR I48.91 Hypomagnesemia E83.42 Alcohol dependence, daily use F10.20 Hypertension I10
[2024-09-25] MEDS: dilTIAZem HCL 120 MG CAPCR PO SCH (15:37)
[2024-09-25] MEDS: APIXABAN 5 MG TABLET PO SCH (20:55)
[2024-09-25] MEDS: ATORVASTATIN 40 MG TAB PO SCH (20:55)
[2024-09-25] MEDS: traZODone HCL 50 MG TAB PO SCH (20:56)
[2024-09-25] MEDS ORDERED: SIMVASTATIN 40 MG TAB PO SCH (21:00)
[2024-09-26 07:41] LABS: Basophils # (auto) 0.05 K/uL (0.00-0.20); Basophils % (auto) 0.9 %; Eosinophils # (auto) 0.21 K/uL (0.00-0.50); Eosinophils % (auto) 3.7 %; Hematocrit (blood only) 45.8 % (42.0-52.0); Hemoglobin 15.6 g/dl (14.0-18.0); Immature Granulocytes # (auto) 0.08 K/uL (0.01-0.20); Immature Granulocytes % (auto) 1.4 %; Lymphocytes # (auto) 2.04 K/uL (1.20-3.40); Lymphocytes % (auto) 36.2 %; Mean Corpuscular Hemoglobin 31.8 pg (25.0-34.0); Mean Corpuscular Hgb Conc 34.1 g/dL (32.0-36.0); Mean Corpuscular Volume 93.3 fL (80.0-100.0); Mean Platelet Volume 9.7 fL (9.4-12.4); Monocytes # (auto) 0.59 K/uL (0.11-0.59); Monocytes % (auto) 10.5 %; Neutrophils # (auto) 2.67 K/uL (1.40-6.50); Neutrophils % (auto) 47.3 %; Platelet Count 214 K/uL (130-400); RDW Coefficient of Variation 13.1 % (11.5-14.5); RDW Standard Deviation 44.6 fL (36.4-46.3); Red Blood Count 4.91 M/uL (4.70-6.10); White Blood Count 5.64 K/ul (4.8-10.8)
[2024-09-26 08:01] LABS: BUN Creatinine Ratio 15.4 (10-20); Calcium 9.2 mg/dl (8.6-10.3); Creatinine Clr Calc Pharmacy 82.8 ml/min; Potassium 4.7 mmol/L (3.5-5.1)
--- NOTE | 2024-09-26 08:57 | Electrocardiogram Report ---
Test Reason : Blood Pressure : */* mmHG Vent. Rate : 87 BPM Atrial Rate : 111 BPM P-R Int : * ms QRS Dur : 90 ms QT Int : 362 ms P-R-T Axes : * 36 30 degrees QTcB Int : 435 ms Atrial fibrillation Abnormal ECG When compared with ECG of 25-Sep-2024 05:27, No significant change was found Confirmed by Adria Luna ([id number]) on 09/26/2024 8:57:11 AM Referred By: REFERRED SELF Confirmed By: Adria Luna
[2024-09-26] MEDS: dilTIAZem HCL 180 MG CAPCR PO SCH (09:09)
--- NOTE | 2024-09-26 10:38 | Discharge Summary ---
Discharge Summary Date of Service September 26, 2024 Principal Dx & Hospital Course #1 = Principal Diagnosis (1) Atrial fibrillation with RVR: Rate controlled with metoprolol. Heparin drip has been switched over to Eliquis. Cardiology consultation and recommendations appreciated. No chest pain. No evidence of acute coronary syndrome (2) Hypertension: Controlled. Metoprolol replaces lisinopril. He is also now on diltiazem (3) Hypomagnesemia: Corrected with replacement. (4) Alcohol dependence, daily use: No history of DTs. AWSS protocol if needed while hospitalized Plan Home today, September 26 Admission HPI Per Admitting Provider The patient is a 64-year-old male with a past medical history including obesity, GERD, hyperlipidemia, hypertension, ED, insomnia, and daily alcohol use. He presents to the emergency department with symptoms as noted above. Upon arrival to the ED he was found to be in atrial fibrillation with RVR in the 150s, that responded to Cardizem 20 mg IV from the ED to heart rate in the low 100s. Discharge Exam General-alert and oriented x3, no fever, no chills HEENT-head atraumatic and normocephalic, pupils equal and reactive to light, extraocular muscles intact Neck-no lymphadenopathy or thyromegaly, trachea midline Chest-clear to auscultation. No rales, wheezing or rhonchi Cardiac-irregular rhythm. Controlled rate. Normal S1 and S2 Abdomen-normal bowel sounds, no hepatosplenomegaly Extremities-no cyanosis, clubbing, or edema Neuro-cranial nerves II through XII intact, motor and sensory function within normal limits, strength symmetrical, no focal deficits Psych-normal affect, normal mood Discharge Plan Discharge Items Patient Disposition: Home - Self-Care Reason For Visit: NEW ATRIAL FIB WITH RVR Discharge Diagnosis: New atrial fibrillation with rapid ventricular rate Activity: Resume your previous activity Non-emergency contact: Primary Care Provider and Loom Operator Call non-emergency contact if: you have any medication questions and your symptoms worsen Follow-up/Referrals: Caroline Thakkar MD [Primary Care Provider] - Diet: Regular and Heart Healthy Addtl Attending Provider Instructions: Take Eliquis (apixaban) 5 mg twice daily. Take diltiazem long-acting 180 mg once a day. Take metoprolol 50 mg twice daily. Prescriptions have been sent to your pharmacy. See your primary care provider and office manager as soon as possible. Lisinopril has been discontinued. Simvastatin has been switched to atorvastatin Pending Studies at Discharge: No Stand-Alone Forms: My [facility], Smoking Cessation Medications and DC Order Prescriptions: New Eliquis 5 mg Tablet 5 mg PO BID Qty: 60 0RF atorvastatin 40 mg Tablet 40 mg PO QPM Qty: 30 0RF diltiazem HCl 180 mg Capsule,Extended Release 24hr 180 mg PO QAM Qty: 30 0RF metoprolol tartrate 50 mg tablet 50 mg PO BID Qty: 60 0RF Continued amoxicillin 500 mg tablet 2,000 mg PO ONCE Qty: 4 3RF Rx Instructions: 4 tabs 1 hour prior to procedure tadalafil 5 mg tablet 5 mg PO DAILY PRN (Reason: Erectile Dysfunction) 30 Days Qty: 30 5RF trazodone 50 mg tablet 50 mg PO HS 90 Days Qty: 90 0RF pantoprazole 40 mg tablet,delayed release (DR/EC) 40 mg PO QAM Discontinued simvastatin 40 mg Tablet 40 mg PO HS lisinopril 40 mg Tablet 40 mg PO QAM Discharge Orders: Discharge Order (Routine); Ordered 09/26/24 Ordered By: Delmer Clay Admission Data Admit Date/Time: 09/25/24 08:33 Attending Provider: Delmer Clay Admit Provider: Nick Maya Primary Care Provider: Caroline Thakkar Other Providers: Nick Maya; Buster Giraldo Hospital Stay Data Consultations 09/24/24 22:14 ED Decision to Admit Stat 09/25/24 00:57 Consult Cardiology Routine Diagnostic Imagining Performed 09/24/24 20:38 CT angio chest PE protocol Stat Pending Results Patient Have Any Pending Studies at Discharge: No Discharge Instructions Given to Patient (Per Discharging Provider) Take Eliquis (apixaban) 5 mg twice daily. Take diltiazem long-acting 180 mg once a day. Take metoprolol 50 mg twice daily. Prescriptions have been sent to your pharmacy. See your primary care provider and office manager as soon as possible. Lisinopril has been discontinued. Simvastatin has been switched to atorvastatin Total Time Total Time Spent Total Time Spent (In Minutes): 50 minutes Coding Level of Care Code 94821 INP/OBS DISCH >30 MIN Diagnoses Atrial fibrillation with RVR I48.91 Hypertension I10 Hypomagnesemia E83.42 Alcohol dependence, daily use F10.20
[2024-09-26 11:06] VITALS: BP 126/74; PULSE 75; RESP 19; TEMP 97.9; O2SAT 94
--- NOTE | 2024-09-26 11:33 | Cardiology Progress Note ---
Date of Service September 26, 2024 Assessment & Plan (1) Atrial fibrillation with RVR: (2) Hypomagnesemia: (3) Alcohol dependence, daily use: (4) Hypertension: Plan Aside from brief episode of transient unexplained dizziness, he is doing well. Good rate control on current combination of diltiazem 180 mg daily and metoprolol tartrate 50 mg twice daily. Could consolidate the metoprolol to tartrate to metoprolol succinate 100 mg daily. Continue anticoagulation with apixaban 5 mg twice daily. Remain off lisinopril given alternative vasoactive medications. Simvastatin replaced by atorvastatin. Okay for discharge later today if no recurrent dizziness, plan is for elective electrical cardioversion after 3 to 4 weeks of anticoagulation. I will arrange for follow-up with me in 2 to 3 weeks to reevaluate and schedule cardioversion if necessary. Admission and Anticipated Discharge Date Admission Date: September 25, 2024 Subjective He feels well in general, able to ambulate hallways without dyspnea, palpitations, or any other complaints. He did have a 2 to 3-minute episode of "dizziness" this morning while eating breakfast. No vertigo, diaphoresis, or chest pain, dyspnea, or any associated complaints. No visual complaints or focal neurologic symptoms. His daughter noted that the patient had had a similar episode sometime recently which resolved without intervention. Telemetry showed atrial fibrillation with controlled ventricular rate of 70-90 bpm. Physical Exam Physical Exam: Appears comfortable. BP normotensive. Pulse 70 and irregular. Skin: no ecchymoses or generalized lesions. HEENT: unremarkable. Neck: JVP at the clavicle at 90 degrees, no carotid bruits. Lungs: clear. No wheezing. Cardiac: Irregular rhythm, normal S1-2, 2/6 apical holosystolic murmur which is nonradiating, no diastolic murmur. Abdomen: benign. Extremities: Trace pretibial edema, pulses intact. Neurologic: normal affect and conversation, nonfocal. Results & Data Vital Signs (Past 12 Hours) Vital Signs Temp Pulse Pulse Resp BP BP Pulse Ox 09/26/24 11:05 97.9 F 75 19 126/74 94 09/26/24 10:46 99.0 F 97 H 17 137/79 126/87 95 09/26/24 07:51 97 H 137/79 09/26/24 07:37 99.0 F 78 17 126/87 95 09/26/24 05:50 86 09/26/24 02:53 97.7 F 78 14 121/79 97 O2 Del Method 09/26/24 11:05 Room Air 09/26/24 10:46 09/26/24 07:51 09/26/24 07:37 Room Air 09/26/24 05:50 09/26/24 02:53 Room Air Laboratory Results Normal electrolytes, BUN 18, creatinine 1.17. PG Care Time/CCT Total # of Minutes Spent Total Time Spent with Patient: Total time spent is greater than 50% in coordination of care (as documented) at patient's floor/unit and/or counseling patient: Coding Level of Care Code 64026 SUB INP/OBS CARE 3/50MIN Diagnoses Atrial fibrillation with RVR I48.91 Hypomagnesemia E83.42 Alcohol dependence, daily use F10.20 Hypertension I10
== END 2024-09-26 12:14 | disposition home or self-care (01) | DRG 310 ==
LOC: ED 20:27 → 2S 20:27 → SUATTDRO 23:30 → 2S 09-25 00:11